=== PATIENT | male | born 1985 | race American Indian/Alaskan Native ===

== ENCOUNTER 2018-10-31 15:48 | Emergency (ER) | payer OTHER ==
--- NOTE | 2018-10-31 15:53 | Emergency Department Report ---
Blank Doc - Documentation Documentation: 33 y o male presents with right foot swelling and pain x 2 days states yesterday he applied an anitifungal cream and swelling got worse denies any trauma,injuries
[2018-10-31 15:57] VITALS: BP 140/89
--- NOTE | 2018-10-31 17:11 | XRay Report ---
PROCEDURE: XR FOOT 2V RT TECHNIQUE: Right foot, 2 views HISTORY: pain COMPARISONS: None available FINDINGS: No acute fracture or dislocation. No focal osseous lesions. No radiopaque foreign body. IMPRESSION: No acute fracture or dislocation is seen. This document is electronically signed by Rohini Fox MD., October 31 2018 05:09:25 PM ET
--- NOTE | 2018-10-31 19:35 | Emergency Department Report ---
ED Lower Extremity HPI - General Chief Complaint: Extremity Problem,Nontraumatic Stated Complaint: R FOOT SWOLLEN Time Seen by Provider: 10/31/18 15:50 Source: patient Mode of arrival: Ambulatory Limitations: No Limitations - History of Present Illness Initial Comments: This is a 33-year-old male nontoxic, well nourished in appearance, no acute signs of distress presents to the ED with c/o of right foot pain 1 day. Patient stated that he has been heavy lifting at work and is unsure how he developed the pain. Patient also has itching and crusting to the right foot near digits. Patient denies any trauma. Patient denies any numbness, tingling, fever, chills, nausea, vomiting, chest pain, shortness of breath, headache, stiff neck. Patient denies any joint swelling or joint redness. Patient denies decreased range of motion. Patient stated has decreased gait due to pain. Patient denies any allergies or significant past medical history. -: days(s) Injury: Foot: Right Place: work Severity: mild Severity scale (0 -10): 8 Improves With: immobilization Worsens With: weight bearing, movement, palpation Associated Symptoms: swelling, able to partially bear weight, ambulatory. denies: snap/pop sensation, numbness, tingling, unable to bear weight - Related Data Previous Rx's Medication Instructions Recorded Last Taken Type Clotrimazole 1% [Lotrimin 1%] 15 gm TP BID #1 tube 10/31/18 Unknown Rx Ibuprofen [Motrin] 600 mg PO Q8H PRN #20 tablet 10/31/18 Unknown Rx ED Review of Systems ROS: Stated complaint: R FOOT SWOLLEN Other details as noted in HPI Constitutional: denies: chills, fever Eyes: denies: eye pain, eye discharge, vision change ENT: denies: ear pain, throat pain Respiratory: denies: cough, shortness of breath, wheezing Cardiovascular: denies: chest pain, palpitations Endocrine: no symptoms reported Gastrointestinal: denies: abdominal pain, nausea, diarrhea Genitourinary: denies: urgency, dysuria Musculoskeletal: denies: back pain, joint swelling, arthralgia Skin: denies: rash, lesions Neurological: denies: headache, weakness, paresthesias Psychiatric: denies: anxiety, depression Hematological/Lymphatic: denies: easy bleeding, easy bruising ED Past Medical Hx - Past Medical History Previous Medical History?: No - Surgical History Past Surgical History?: No - Social History Smoking Status: Current Every Day Smoker Substance Use Type: Alcohol - Medications Home Medications: Home Medications Medication Instructions Recorded Confirmed Last Taken Type Clotrimazole 1% [Lotrimin 1%] 15 gm TP BID #1 tube 10/31/18 Unknown Rx Ibuprofen [Motrin] 600 mg PO Q8H PRN #20 tablet 10/31/18 Unknown Rx ED Physical Exam - General Limitations: No Limitations General appearance: alert, in no apparent distress - Head Head exam: Present: atraumatic, normocephalic - Neck Neck exam: Present: normal inspection, full ROM - Extremities Exam Extremities exam: Present: normal inspection, full ROM, tenderness, normal capillary refill. Absent: joint swelling, calf tenderness - Expanded Lower Extremity Exam Right Hip exam: Present: normal inspection, full ROM. Absent: tenderness, swelling Upper Leg exam: Present: normal inspection, full ROM. Absent: tenderness, swelling Knee exam: Present: normal inspection, full ROM. Absent: tenderness, swelling Lower Leg exam: Present: normal inspection, full ROM. Absent: tenderness, swelling Ankle exam: Present: normal inspection, full ROM. Absent: tenderness, swelling Foot/Toe exam: Present: normal inspection, full ROM, tenderness, swelling. Absent: abrasion, laceration, ecchymosis, deformity, crepidus, dislocation, erythema, amputation, puncture wound, calcaneal tenderness, tenderness at base of 5th metatarsal, nail avulsion, subungual hematoma Neuro vascular tendon exam: Present: no vascular compromise Gait: Positive: observed and limited by pain - Back Exam Back exam: Present: normal inspection, full ROM - Neurological Exam Neurological exam: Present: alert, oriented X3 - Psychiatric Psychiatric exam: Present: normal affect, normal mood - Skin Skin exam: Present: warm, dry, intact, normal color, rash (scaly rash with suzan ting) ED Course Vital Signs 10/31/18 15:52 Temperature 98.7 F Pulse Rate 100 H Respiratory 20 Rate Blood Pressure 140/89 O2 Sat by Pulse 98 Oximetry - Reevaluation(s) Reevaluation #1: 10/31/18 19:35 Patient is speaking in full sentences with no signs of distress noted. ED Lower Extremity MDM - Medical Decision Making This is a 33-year-old male that presents with right foot strain and athlete's foot. Patient is stable and was examined by me. I referred patient to an orthopedic doctor for further evaluation for possible MRI. X-ray has been obtained and dictated by the radiologist. Patient is notified of the x-ray rep ort with noted by the patient. Patient does have normal gait with no tenderness and no joint swelling. No ecchymosis. no joint redness or swelling. Not warm to touch. No signs of cellulites present. Patient was instructed to RICE therapy. Patient received Motrin for pain. Patient is discharged with Motrin. At time of discharge, the patient does not seem toxic or ill in appearance. No acute signs of distress noted. Patient agrees to discharge treatment plan of care. No further questions noted by the patient. Critical care attestation.: If time is entered above; I have spent that time in minutes in the direct care of this critically ill patient, excluding procedure time. ED Disposition Clinical Impression: Athlete's foot, right Right foot strain Qualifiers: Encounter type: initial encounter Qualified Code(s): S96.911A - Strain of unspecified muscle and tendon at ankle and foot level, right foot, initial encounter Disposition: DC-01 TO HOME OR SELFCARE Is pt being admited?: No Does the pt Need Aspirin: No Condition: Stable Instructions: Tinea Pedis (ED), RICE Therapy (ED) Additional Instructions: Follow-up with a orthopedic doctor in 3-5 days or if symptoms worsen and continue return to emergency room as soon as possible. Prescriptions: Clotrimazole 1% [Lotrimin 1%] 15 gm TP BID #1 tube Ibuprofen [Motrin] 600 mg PO Q8H PRN #20 tablet PRN Reason: Pain Referrals: OZZIE LOPEZ MD [Primary Care Provider] - 3-5 Days PRIMARY CAREMD [Referring] - 3-5 Days CRIS PHELPS MD [Staff Physician] - 3-5 Days [facility] [Outside] - 3-5 Days Forms: Work/School Release Form(ED)
== END 2018-10-31 19:45 | disposition home or self-care (01) ==
LOC: ED 15:48
DX: S96.911A Strain of unspecified muscle and tendon at ankle and foot level, right foot, initial encounter (principal); B35.3 Tinea pedis; F17.200 Nicotine dependence, unspecified, uncomplicated; X50.0XXA Overexertion from strenuous movement or load, initial encounter; Y93.89 Activity, other specified; Y92.69 Other specified industrial and construction area as the place of occurrence of the external cause; Y99.8 Other external cause status

== ENCOUNTER 2020-07-04 14:43 | Emergency (ER) | payer BC, OTHER ==
[2020-07-04 14:55] VITALS: BP 148/96
--- NOTE | 2020-07-04 15:06 | Emergency Department Report ---
ED Back Pain/Injury HPI - General Chief Complaint: Pain General Stated Complaint: BACK/CHEST PAIN Time Seen by Provider: 07/04/20 14:57 Source: patient Limitations: No Limitations - History of Present Illness Initial Comments: 34-year-old male presents with left-sided lower back pain x3 days. Patient states aching throbbing in nature that is worse with movement. Patient states that he lyfts at work and thinks that he may strain his muscle from doing. He denies any fever, chills, nausea vomiting, flank pain, dysuria symptoms. MD Complaint: back pain Similar Symptoms Previously: No Place: work Radiation: none Severity: mild Severity scale (0 -10): 5 Quality: aching Consistency: intermittent Improves With: immobilization Worsens With: movement Associated Symptoms: denies: confusion, difficulty walking, constipation - Related Data Previous Rx's Medication Instructions Recorded Last Taken Type Clotrimazole 1% [Lotrimin 1%] 15 gm TP BID #1 tube 10/31/18 Unknown Rx Ibuprofen [Motrin] 600 mg PO Q8H PRN #20 tablet 10/31/18 Unknown Rx Ibuprofen [Motrin 800 MG tab] 800 mg PO Q8HR PRN #30 tablet 07/04/20 Unknown Rx methOCARBAMOL [Robaxin TAB] 500 mg PO BID #20 tab 07/04/20 Unknown Rx Allergies Allergy/AdvReac Type Severity Reaction Status Date / Time No Known Allergies Allergy Unverified 07/04/20 14:50 ED Review of Systems ROS: Stated complaint: BACK/CHEST PAIN Other details as noted in HPI Comment: All other systems reviewed and negative ED Back Pain Physical Exam - Exam General: Vital signs noted. No distress. Alert and acting appropriately. Tenderness palpation of the latissimus dorsi muscles Full range of motion of all extremities upper and lower bilaterally Back/Abdomen: No Abdominal Tenderness, No Perithoracic Tenderness, No Perilumbar Tenderness, No Sacroiliac Tenderness, No Flank Tenderness, No Straight Leg Raise Pain Neuro: Yes Normal Sensation, Yes Normal DTR's, Yes Normal Gait, No Motor Weakness ED Course Vital Signs 07/04/20 14:53 Temperature 99.5 F Pulse Rate 103 H Respiratory 18 Rate Blood Pressure 148/96 O2 Sat by Pulse 98 Oximetry ED Medical Decision Making - Medical Decision Making 34-year-old male presents to ED with myalgia of the lower back ED course: Vital signs are normal patient is in no acute distress Discussed with patient follow-up with primary care physician. Discussed the patient and take medications as prescribed. Patient has no neurological deficit. Patient is alert and oriented 3 and understands all instructions given. Critical care attestation.: If time is entered above; I have spent that time in minutes in the direct care of this critically ill patient, excluding procedure time. ED Disposition Clinical Impression: Myalgia, Strain of muscle, fascia and tendon of lower back, initial encounter Disposition: TO HOME OR SELFCARE Is pt being admited?: No Does the pt Need Aspirin: No Condition: Stable Instructions: Muscle Strain, [id number], How to Use Cold Therapy, Back Injury Prevention Additional Instructions: Make sure to follow up with the primary care physician as discussed. Take all your medications as you've been prescribed. If you have any worsening symptoms or develop new symptoms please return to ED immediately. Referrals: [facility] [Outside] - 3-5 Days [facility] [Outside] - 3-5 Days Forms: Work/School Release Form(ED) Time of Disposition: 15:57
== END 2020-07-04 16:10 | disposition home or self-care (01) ==
LOC: ED 14:43
DX: S39.012A Strain of muscle, fascia and tendon of lower back, initial encounter (principal); M79.10 Myalgia, unspecified site; Z79.1 Long term (current) use of non-steroidal anti-inflammatories (NSAID); Z79.899 Other long term (current) drug therapy; X58.XXXA Exposure to other specified factors, initial encounter; Y93.89 Activity, other specified; Y92.89 Other specified places as the place of occurrence of the external cause; Y99.8 Other external cause status
CPT/HCPCS: 99282